=== PATIENT | male | born 1990 | race African-American/Black ===

== ENCOUNTER 2016-11-23 17:11 | Outpatient (CLI) | payer MEDICARE ==
[~2016-11-23] VITALS: Ht 170.2 cm; Wt 56.8 kg
[~2016-11-23 17:11] MED LIST: AMITIZA8 MCG; CHRONULAC30 ML PO; CLONAZEPAM2 MG/TAB PO; LAMICTAL25 MG PO; MYSOLINE250 MG PO; VIMPAT50 MG PO; ZONEGRAN100 MG PO
[2016-11-23] MEDS ORDERED: ZONEGRAN100 MG PO (17:47)
[2016-11-23 17:48] VITALS: BP 128/87; Ht 170.2 cm; Wt 56.8 kg
--- NOTE | 2016-11-23 19:33 | NUR ---
AFTER 2 1000 ML ENEMA AND PASS MANUAL DISSEMPACTION ,PT HAD SUPER LG BM BROWN AND FORMED
[2016-11-23 19:37] LABS: APPEARANCE HAZY (CLEAR); BACTERIA FEW /hpf (NONE SEEN); BILIRUBIN NEGATIVE (NEGATIVE); COLOR YELLOW (YELLOW); GLUCOSE NEGATIVE (NEGATIVE); KETONE NEGATIVE (NEGATIVE); LEUKOCYTE ESTERASE TRACE (NEGATIVE); NITRITE NEGATIVE (NEGATIVE); PROTEIN NEGATIVE (NEGATIVE); RED CELLS - URINE OCC /hpf (0-5); UROBILINOGEN NORMAL (NORMAL); WHITE CELLS - URINE 0-5 /hpf (0-5)
== END 2016-11-23 19:30 | disposition home or self-care (01) ==
LOC: D.OPS 17:11
PROVIDERS: Family Medicine
DX: K59.00 Constipation, unspecified (principal); R41.0 Disorientation, unspecified; Z01.812 Encounter for preprocedural laboratory examination

== ENCOUNTER → 2017-02-07 15:13 | Outpatient (CLI) | payer MEDICARE ==
[~2017-02-07] VITALS: Ht 152.4 cm; Wt 56.8 kg
[2017-02-07 16:03] VITALS: BP 108/64; Ht 152.4 cm; Wt 56.8 kg
== END | disposition home or self-care (01) ==
LOC: D.OPS 15:00
DX: K59.00 Constipation, unspecified (principal)

== ENCOUNTER 2017-02-13 17:18 | Day surgery (SDC) | payer MEDICARE ==
[~2017-02-13] VITALS: Ht 170.2 cm; Wt 59.1 kg
[~2017-02-13 17:18] MED LIST changes: -AMITIZA8 MCG; +AMITIZA8 MCG PO
[2017-02-13 18:11] VITALS: BP 119/73; Ht 170.2 cm; Wt 59.1 kg
--- NOTE | 2017-02-13 18:16 | NUR ---
1800 INITIAL DIGITAL EXAM WITH IMPACTION AT TIP OF DIGITAL EXAM, SOFT BUT UNABLE TO EXTRACT, SS ENEMA INITIATED.
--- NOTE | 2017-02-13 20:04 | NUR ---
2000 SS EMEMAS CONTINUE 3 BAGS WITH DIGITAL IMPACTION RELIEF, BROWN LIQUID RETURN,WITH TRANSVERSE FIRMNESS. SITTING ON BEDSIDE COMMODE AT PRESENT.
--- NOTE | 2017-02-13 20:25 | NUR ---
2024 PT WITH SMALL AMT. BROWN STOOL WITH LOTS OF LIQUID BROWN STOOL RETURN AND WATER RETURN. MOTHER DECIDES SON HAS HAD ENOUGH FOR TONIGHT AND WILL GO HOME AND CALL HIS DRArlene TOMORROW. RELEASED IN OWN WC.
== END 2017-02-13 20:25 | disposition home or self-care (01) ==
LOC: D.OPS 17:18
DX: K56.41 Fecal impaction (principal)

== ENCOUNTER 2017-02-14 14:51 | Inpatient (IN) | payer MEDICARE ==
[~2017-02-14] VITALS: Ht 170.2 cm; Wt 80.7 kg
[2017-02-14 15:20] VITALS: BMI 19.6
[2017-02-14 15:42] LABS: HEMATOCRIT 45.7 % (42.0-54.0); HEMOGLOBIN 15.6 g/dL (13.5-17.5); MCH 31.3 pg (26.0-34.0); MCHC 34.1 g/dL (31.0-37.0); MCV 91.8 fL (80.0-100.0); MEAN PLATELET VOLUME 10.5 fL (7.4-10.4); PLATELET COUNT 237 10x3/uL (130-400); RBC 4.98 10x6/uL (4.20-6.10); RDW 12.5 % (11.5-14.5); WBC 2.9 10x3/uL (4.8-10.8)
[2017-02-14 15:55] LABS: ALBUMIN 4.1 g/dL (3.4-5.0); ALKALINE PHOSPHATASE 150 U/L (46-116); ALT (SGPT) 18 U/L (10-68); BILIRUBIN - TOTAL 0.29 mg/dL (0.2-1.3); CALC OSMOLALITY 277 mosm/kg (275-300); CALCIUM 9.1 mg/dL (8.5-10.1); CHLORIDE - SERUM 105 mmol/L (98-107); CREATININE - SERUM 1.1 mg/dL (0.6-1.3); GLUCOSE 93 mg/dL (74-106); POTASSIUM - SERUM 3.9 mmol/L (3.5-5.1); PROTEIN - SERUM 8.1 g/dL (6.4-8.2); SODIUM 141 mmol/L (136-145); UREA NITROGEN 5 mg/dL (7-18); eGFR NON AFRICAN AMERICAN 87 mL/min (90-120)
--- NOTE | 2017-02-14 15:58 | NUR ---
PT ARRIVED TO UNIT AND HAS BEEN ORIENTED TO ROOM. PT HAS CEREBRAL PALSEY AND MOSTLY NONVERBAL. MOTHER AT BEDSIDE AND SPEAKS FOR HIM AND GAVE ME ALL THE ADMISSION WORK-UP. ATTEMPTED PIV ACCESS BUT WASNT SUCCESSFUL X1 STICK WITH A 20 GUAGE. PT ONLY HAS ONE ARM TO WORK WITH HIS L.ARM R/T R.ARM CONTRACTED, CALLED VASCULAR NURSE TO OBTAIN ACCESS FOR LESS TRAUMA FOR PT THEN WILL START FLUIDS ORDERED.
[2017-02-14 16:05] LABS: THYROID STIMULATING HORMONE 0.51 uIU/mL (0.36-3.74)
[2017-02-14 16:44] LABS: LYMPHOCYTES 25 % (15-50); MONOCYTES 5 % (2-11); NEUTROPHILS 70 % (40-80); PLATELET ESTIMATE NORMAL
--- NOTE | 2017-02-14 17:01 | NUR ---
INITIATED IV FLUIDS INFUSING VIA L.UPPER ARM PIV WITH DRSG CDI AND SWAB CAPS IN USE. PT RESTING QUIETLY IN BED WITH MOTHER AT BEDSIDE. WILL CTM.
--- NOTE | 2017-02-14 19:35 | NUR ---
ALERT/AWAKE SMILING HOLDING HIS MOTHER'S HAND. NO SIGNS/SYMPTOMS OF PAIN OR DISCOMFORT. IV IN L UA WITH NS INFUSING AT 100ML/HR. HIS MOTHER STATED SHE WILL BE LEAVING IN A FEW HOURS. ASSURED HER WE WILL WATCH HIM CLOSELY AND CONTACT HER IF NEEDED.
[2017-02-14 20:15] VITALS: BP 115/66
--- NOTE | 2017-02-14 20:45 | NUR ---
ADMIN SCHED MEDS CRUSHED. HIS MOTHER MIXED WITH APPLEJUICE IN MED CUP AND ENCOURAGED HIM TO SWALLOW.
[2017-02-14 23:32] VITALS: BP 129/92
--- NOTE | 2017-02-15 01:45 | NUR ---
STARTED ENEMA'S. AFTER 1ST BAG, ASSISTED TO BSC AND PASSED BROWNISH LIQUID. SMILING AND HAS NO SIGNS OR SYMPTOMS OF PAIN OR DISCOMFORT. MASSAGE HIS LOWER ABD TO ENCOURAGE PASSAGE OF STOOL. WITH LUBRICATED GLOVED FINGER COULD FEEL SMALL SOFT STOOL OUT OF RANGE TO REMOVE.
--- NOTE | 2017-02-15 03:15 | NUR ---
HAS NOT PASSED 2ND BAG OF ENEMA. HIS MOTHER STATED SHE WOULD LET ME KNOW WHEN HE DOES.
[2017-02-15 04:00] VITALS: BP 126/90
--- NOTE | 2017-02-15 05:30 | NUR ---
PASSED LARGE AMOUT OF BROWNISH PASTY AND LIQUID STOOL. CHANGED GOWN AND BEDDING.
[2017-02-15 06:17] LABS: BASOPHILS 0.5 % (0-2); EOSINOPHILS 2.1 % (0-7); HEMOGLOBIN 14.3 g/dL (13.5-17.5); LYMPHOCYTES 34.8 % (15-50); MCH 30.6 pg (26.0-34.0); MCHC 33.3 g/dL (31.0-37.0); MCV 91.9 fL (80.0-100.0); MEAN PLATELET VOLUME 10.5 fL (7.4-10.4); MONOCYTES 8.5 % (2-11); NEUTROPHILS 54.1 % (40-80); PLATELET COUNT 217 10x3/uL (130-400); RBC 4.68 10x6/uL (4.20-6.10); RDW 12.5 % (11.5-14.5)
[2017-02-15 06:18] LABS: WBC 4.3 10x3/uL (4.8-10.8)
[2017-02-15 06:24] LABS: CALCIUM 8.6 mg/dL (8.5-10.1); CHLORIDE - SERUM 105 mmol/L (98-107); GLUCOSE 83 mg/dL (74-106); SODIUM 139 mmol/L (136-145)
--- NOTE | 2017-02-15 06:30 | NUR ---
ADMIN LACTULOSE, SWALLOWING WITHOUT DIFFICULTY. CHANGED DIAPER CONTAINING MED AMOUNT OF STOOL, PASTY IN CONSISTANCY.
[2017-02-15 06:35] LABS: CALC OSMOLALITY 273 mosm/kg (275-300); CREATININE - SERUM 0.8 mg/dL (0.6-1.3); UREA NITROGEN 3 mg/dL (7-18); eGFR NON AFRICAN AMERICAN > 90 mL/min (90-120)
[2017-02-15 08:36] VITALS: BP 97/66
--- NOTE | 2017-02-15 08:51 | NUR ---
INTRODUCED MYSELF TO PT AND MOTHER PRIMARY RN FOR TODAYS SHIFT. PT SITTING UP IN BED VERY EXCITABLE TO SEE ME AGAIN TODAY. MOTHER STATES HE HAD A GOOD NIGHT AND IS DOING WELL. ELECTROLYTE REPLACEMENT INITIATED AND POTASSIUM REPLACED FOR LEVEL OF 3.0. DILUTED LIQUID WITH GRAPE JUICE ALONG WITH PTS MIRALAX. MOTHER AT BEDSIDE AND GIVES PT HIS MEDS BUT REQUESTED THEM CRUSHED SO I PROVIDED HER WITH THEM. CHANGED OUT PTS TUBING AND IV FLUIDS FOR NEW ORDER OF NS WITH 20MEQ OF KCL INFUSING VIA L.UPPER ARM PIV WITH DRSG CDI AND SWAB CAPS IN USE. PT BEING ASSISTED BY MOTHER WITH BREAKFAST NO CURRENT NEEDS AT THIS TIME. CL IN REACH, BED IN LOWEST, SIDE RAILS X2. WILL CPOC.
--- NOTE | 2017-02-15 10:15 | NUR ---
PT LEAVING FOR XR GASTRO ENEMA, MOTHER AT BEDSIDE. NO NEEDS. WILL CPOC.
--- NOTE | 2017-02-15 11:42 | NUR ---
PT BACK FROM XR ENEMA PROCEDURE. PROVIDED PT WITH FRESH BLANKET. PT RESTING QUIETLY IN BED WITH EYES CLOSED. MOTHER AT BEDSIDE WILL CTM.
[2017-02-15 12:55] VITALS: BP 103/64
[2017-02-15 13:50] VITALS: Ht 170.2 cm; Wt 80.7 kg
[2017-02-15 17:41] VITALS: BP 121/86
--- NOTE | 2017-02-15 18:45 | NUR ---
PT HAD LARGE WATERY BM IN "MIKAELA POOL" PT REC'D COMPLETE BED BATH. PT UNABLE TO VOICE FEELINGS BUT MOTHER AT BEDSIDE STATES SHE CAN TELL HE IS FEELING BETTER. PT WILL STILL MOST LIKELY NEED ANOTHER ONE DONE TOMORROW. PT STILL RECIEVING MULTIPLE SOFTNERS BUT UNABLE TO PRODUCE ANY ON HIS OWN. NO CURRENT NEEDS AT THIS TIME. MOTHER AT BEDSIDE, CL IN REACH. WILL CTM.
[2017-02-15 20:00] VITALS: BP 120/93
--- NOTE | 2017-02-15 20:25 | NUR ---
ALERT, AWAKE SMILING LOOKING AT HIS MOTHER AND HOLDING HER HAND. NO SIGNS OR SYMPTOMS OF PAIN OR DISCOMFORT. ADMIN SCHED MEDS CRUSHED MIXED IN 30 CC APPLEJUICE, SWALLOWING WITHOUT DIFFICULTY.
--- NOTE | 2017-02-15 22:55 | NUR ---
IV INFILTRATED. REMOVED AND PLACED DRSG. WRAPPED ARM IN WARM BLANKET TO HELP ABSORB INFILTRATED IVF.
--- NOTE | 2017-02-15 23:47 | NUR ---
UNSUCCESSFUL AT RESITING IV. WILL ASK ANOTHER NURSE TO TRY OR CALL ICU NURSE.
[2017-02-16] VITALS: BP 116/72
--- NOTE | 2017-02-16 01:56 | NUR ---
IV RESITED IN L HAND 22G. RESTARTED IVF. TOLERATED VERY WELL.
--- NOTE | 2017-02-16 02:50 | NUR ---
CLEANED FOR INCONTINENCE OF STOOL. MOSTLY WATERY AND SMALL AMOUNT OF PASTY CONSISTENCY STICKING TO HIM.
[2017-02-16 05:52] LABS: BASOPHILS 0.7 % (0-2); EOSINOPHILS 1.9 % (0-7); HEMATOCRIT 43.9 % (42.0-54.0); HEMOGLOBIN 14.5 g/dL (13.5-17.5); IMMATURE GRANULOCYTES 0.2 % (0-5); LYMPHOCYTES 35.4 % (15-50); MCH 30.5 pg (26.0-34.0); MCV 92.4 fL (80.0-100.0); MEAN PLATELET VOLUME 10.9 fL (7.4-10.4); MONOCYTES 7.4 % (2-11); NEUTROPHILS 54.4 % (40-80); PLATELET COUNT 238 10x3/uL (130-400); RBC 4.75 10x6/uL (4.20-6.10); RDW 12.7 % (11.5-14.5); WBC 4.2 10x3/uL (4.8-10.8)
[2017-02-16 06:17] LABS: ALBUMIN 3.8 g/dL (3.4-5.0); ALKALINE PHOSPHATASE 135 U/L (46-116); ALT (SGPT) 16 U/L (10-68); CALC OSMOLALITY 275 mosm/kg (275-300); CALCIUM 8.8 mg/dL (8.5-10.1); CARBON DIOXIDE 23.1 mmol/L (21.0-32.0); CHLORIDE - SERUM 108 mmol/L (98-107); CREATININE - SERUM 0.7 mg/dL (0.6-1.3); GLUCOSE 78 mg/dL (74-106); PHOSPHOROUS 3.4 mg/dL (2.5-4.9); POTASSIUM - SERUM 3.4 mmol/L (3.5-5.1); PROTEIN - SERUM 7.4 g/dL (6.4-8.2); SODIUM 141 mmol/L (136-145); eGFR NON AFRICAN AMERICAN > 90 mL/min (90-120)
[2017-02-16 06:18] LABS: UREA NITROGEN 2 mg/dL (7-18)
--- NOTE | 2017-02-16 07:31 | NUR ---
PT IN BED RESTING EVEN AND UNLABORED RESPIRATIONS NOTED FAMILY MEMBER RESTING AT BEDSIDE WILL CONTINUE TO MONITOR
[2017-02-16 08:00] VITALS: BP 104/66
--- NOTE | 2017-02-16 09:59 | NUR ---
AM MEDICATIONS ADMINISTERED HOWEVER DUE TO LENGTH OF TIME IT TAKES TO GET PT TO TAKE MEDS COMPUTER TIMED OUT AND MEDICATION PACKAGING ALREADY THROWN AWAY AND UNABLE TO RESCAN MOTHER AT BEDSIDE DURING ADMINISTRATION OF ALL MEDS GIVEN
--- NOTE | 2017-02-16 10:40 | NUR ---
UPON OBSERVATION OF PT SEVERAL SEIZURES NOTED. IN THE SMALLER SEIZURES THE PT JERKS TO THE LEFT FOLLOWED BY SEVERAL SECONDS OF A BLANK STARE. IN THE LARGER SEIZURES THE PTs ENTIRE BODY CONTRACTS TOWARD THE MIDLINE AND STAYS THERE FOR SEVERAL SECONDS THIS IS THEN FOLLOWED BY LETHARGY. FOLLOWING THE LARGER SEIZURES THE PT USUALLY GOES TO SLEEP. MOTHER AT BEDSIDE SAID THIS IS NORMAL ACTIVITY AND THAT THE SEIZURES ARE CAUSED BY "THE REFLECTION OF LIGHT" INTERVENTIONS PROVIDED- LIGHTS IN ROOM OFF, DARK SUNGLASSES ON, DECREASED STIMULI. WILL CONTINUE TO MONITOR.
[2017-02-16 12:00] VITALS: BP 111/73
[2017-02-16 16:00] VITALS: BP 108/63
[2017-02-16 20:00] VITALS: BP 110/75
--- NOTE | 2017-02-16 20:00 | NUR ---
REC'D IN BED ALERT TO NAME. RESP EVEN AND UNLABORED WITH NO DISTRESS NOTED. NO C/O NOTED OR VOICED AT THIS TIME. ASSESSMENT COMPLETED. MOTHER REMAIN AT BEDSIDE. CHECKED ON OFTEN. C/L IN REACH.
--- NOTE | 2017-02-17 | NUR ---
CONTINUE TO REST WELL AT THIS TIME. MOTHER REMAIN AT BEDSIDE. C/L IN REACH.
--- NOTE | 2017-02-17 02:23 | NUR ---
PT LYING IN BED, EYES CLOSED, RESPIRATIONS EVEN AND UNLABORED. FAMILY/MOM AT BEDSIDE, AWAKE, DENIES ANY NEEDS. CONTINUE TO MONITOR CLOSELY.
[2017-02-17 04:00] VITALS: BP 113/75
--- NOTE | 2017-02-17 07:17 | NUR ---
PT IN BED RESTING EVEN AND UNLABORED RESPIRATONS NOTED WILL CONTINUE TO MONITOR
[2017-02-17 08:38] VITALS: BP 93/67
[2017-02-17 12:36] VITALS: BP 101/70
--- NOTE | 2017-02-17 15:24 | NUR ---
RESTING IN BED. SUNGLASSES ON. PATIENTS MOTHER AT BEDSIDE. RESP EVEN AND UNLABORED. NO DISTRESS. CALL LIGHT WITHIN REACH.
--- NOTE | 2017-02-17 15:24 | NUR ---
PT RESTING WITH MOTHER (ALSO RESTING) AT BEDSIDE EVEN AND UNLABORED RESPIRATIONS NOTED WILL CONTINUE TO MONITOR.
[2017-02-17 16:23] VITALS: BP 99/57
[2017-02-17 20:00] VITALS: BP 126/87
--- NOTE | 2017-02-18 03:13 | NUR ---
CALL LIGHT IN REACH, WILL CONTINUE WITH PLAN OF CARE.
[2017-02-18 04:00] VITALS: BP 108/71
[2017-02-18] MEDS ORDERED: COLACE100 MG PO (06:50)
[2017-02-18] MEDS ORDERED: MINERAL OIL25 ML PO (06:50)
[2017-02-18] MEDS ORDERED: AMITIZA24 MCG PO (06:50)
[2017-02-18] MEDS ORDERED: MIRALAX17 GM PO (06:50)
--- NOTE | 2017-02-18 07:45 | NUR ---
INTRODUCED MYSELF TO PT PRIMARY RN FOR TODAYS SHIFT. PT IS SLEEPING WITH HIS EYES CLOSED. MOTHER AT BEDSIDE AND STATES THEY HOPE TO BE DISCHARGED TODAY PT HAS BEEN HAVING SEVERAL BOWEL MOVEMENTS NOW. PT HAS NS WITH 20MEQ OF KCL INFUSING VIA L.UPPER ARM @75ML/HR. DRSG CDI AND SWAP CAPS IN USE. MOTHER DENIES ANY CURRENT NEEDS AT THIS TIME. CL IN REACH. WILL CPOC.
[2017-02-18 08:00] VITALS: BP 110/71
--- NOTE | 2017-02-18 09:00 | NUR ---
PROVIDED PT WITH HIS MORNING MEDICATIONS CRUSHED IN APPLE JUICE. PT SWALLOWED FOR HIS MOTHER WITHOUT ANY DIFFICULTIES. PT INCONTINENT OF URINE EPISODE. ORACLE PROGRAMMER ANALYST AT BEDSIDE AND PROVIDED COMPLETE BED BATH. COLACE ENEMA HELD AT THIS TIME PER MOTHERS REQUEST UNTIL A LITTLE LATER R/T PT HAVING TO DO SO MUCH JUST NOW. WILL ALLOW PT TO REST AND PROVIDED LATER. PT RESTING IN BED SMILING HOLDING HIS MOTHERS HAND. MOTHER AT BEDSIDE FEEDING HIM. NO FURTHER NEEDS AT THIS TIME. WILL CPOC.
--- NOTE | 2017-02-18 10:37 | NUR ---
Patient Name: ELIEL HURTADO Admission Status: Urgent Accout number: [id number] Admission Date: 02-17-2017 : 1990 Admission Diagnosis: Attending: PRAMOD Current LOS: 1 Anticipated DC Date: 02-18-2017 Planned Disposition: Home Primary Insurance: MEDICARE A & B Discharge Planning Comments: CM ATTEMPTED TO MEET WITH PT FOR INITIAL ASSESSMENT OF DISCHARGE NEEDS. PT'S MOTHER WAS NOT IN ROOM AT APPROXIMATELY 1030 HOURS, BEDSIDE NURSE INFORMED CM THAT PT'S MOTHER LEFT TO MISSY HER PHONE FIXED, PT DOES NOT COMMUNICATE. CM TO ATTEMPT ASSESSMENT OF PT AT A LATER TIME. Pediatric Dietician: Kushal Galicia
--- NOTE | 2017-02-18 10:42 | NUR ---
OFFERED SCDS FOR DVT PROPHYLACTICS BUT MOTHER REFUSED R/T IT MAY TRIGGER IRRITATION AND SEIZURE ACTIVITY.
[2017-02-18 12:00] VITALS: BP 113/69
--- NOTE | 2017-02-18 13:06 | NUR ---
Patient Name: ELIEL HURTADO Admission Status: Urgent Accout number: [id number] Admission Date: 02-17-2017 : 1990 Admission Diagnosis: Attending: PRAMOD Current LOS: 1 Anticipated DC Date: 02-18-2017 Planned Disposition: Home Primary Insurance: MEDICARE A & B Discharge Planning Comments: * Is the patient Alert and Oriented? No 0 * How many steps to enter\exit or inside your home? RAMP 0 * PCP DR. LOPEZ 0 * Pharmacy [facility] 0 * Preadmission Environment Home with Family 0 * ADLs Total Dependent 0 * Equipment Other Shower Chair Wheelchair 0 * Other Equipment NAVARRO NERVE STIMULATOR - FOR SEIZURE CONTROL NO MEDICAL EQUIPMENT PROVIDER PREFERENCE 0 * List name and contact numbers for known caregivers / representatives who currently or will assist patient after discharge: ABRAHAM CLARK, MOTHER,. [phone] 0 * Community resources currently utilized Private Duty Care 0 * Please name any agencies selected above. [employer] [facility] [facility] [employer] - 24 HRS / 7 DAYS ON WEEKDAYS 32 WEEKEND HOURS 0 * Additional services required to return to the preadmission environment? No 0 * Can the patient safely return to the preadmission environment? Yes 0 * Has this patient been hospitalized within the prior 30 days at any hospital? No 0 CM RECEIVED DISCHARGE ORDER, MET WITH PT AND MOTHER IN ROOM TO DISCUSS DISCHARGE PLANNING AND NEEDS. PT IS NON COMMUNICATIVE, PT'S MOTHER PARTICIPATED IN ASSESSMENT. PT'S MOTHER REPORTS LIVING AT HOME TOTALLY DEPENDENT UPON HIS MOTHER AND BROTHER. PT RECEIVES 24 HOUR CAREGIVING THROUGH [facility] DURING WEEKDAYS AND 32 HOURS ON WEEKENDS. PT IS NEVER ALONE AND FAMILY IS WITH PT AT ALL TIMES TO ATTEND TO PT'S CARE AND NEEDS. CM DISCUSSED AVAILABILITY OF HOME HEALTH, REHAB SERVICES AND MEDICAL EQUIPMENT. PT'S MOTHER DENIES DISCHARGE NEEDS, REPORTS SHE WILL PICK BE TRANSPORTING PT HOME AT DISCHARGE TODAY. IMPORTANT MESSAGE FROM MEDICARE PROVIDED AND EXPLAINED. Crematory Operator: Kushal Galicia
--- NOTE | 2017-02-18 13:30 | NUR ---
D/C PTS L.UPPER ARM PIV WITH CATHETER TIP FULLY INTACT. PT BEING DISCHARGED. TEACHING PROVIDED TO MOTHER AND PAPERS GIVEN AND SIGNED. MOTHER DENIES ANY QUESTIONS OR CONCERNS. BELONGINGS COLLECTED AND PT WILL BE TRANSPORTED DOWN. NO FURTHER NEEDS.
== END 2017-02-18 13:34 | disposition home or self-care (01) | DRG 389 ==
LOC: D.M2 14:51 → OBSVTIME 14:51 → D.M2 14:51
PROVIDERS: ADMIT Family Medicine
DX: K56.41 Fecal impaction (principal); K56.7 Ileus, unspecified; G40.909 Epilepsy, unspecified, not intractable, without status epilepticus; Z99.3 Dependence on wheelchair

== ENCOUNTER 2017-03-28 17:49 | Emergency (ER) | payer MEDICARE ==
[2017-02-15 13:50] VITALS: BMI 26.4
[~2017-03-28 17:49] MED LIST changes: +AMITIZA24 MCG PO; +COLACE100 MG PO; +MINERAL OIL25 ML PO; +MIRALAX17 GM PO
== END 2017-03-28 20:00 | disposition home or self-care (01) ==
LOC: D.ER 17:49
DX: S01.01XA Laceration without foreign body of scalp, initial encounter (principal); W19.XXXA Unspecified fall, initial encounter; Y93.89 Activity, other specified; Y92.019 Unspecified place in single-family (private) house as the place of occurrence of the external cause

== ENCOUNTER 2017-05-08 22:40 | Emergency (ER) | payer MEDICARE ==
[2017-02-15 13:50] VITALS: BMI 26.4
== END 2017-05-09 00:24 | disposition home or self-care (01) ==
LOC: D.ER 22:40
DX: S01.511A Laceration without foreign body of lip, initial encounter (principal); W19.XXXA Unspecified fall, initial encounter; Y93.89 Activity, other specified; Y92.029 Unspecified place in mobile home as the place of occurrence of the external cause

== ENCOUNTER 2017-11-09 00:30 | Inpatient (IN) | payer MEDICARE ==
[~2017-11-09] VITALS: Ht 172.7 cm; Wt 56.7 kg
--- NOTE | ~2017-11-09 | HP ---
PATIENT: ELIEL HURTADO MEDICAL RECORD: [id number] ACCOUNT: [id number] LOCATION:[id number] : [birth year] ADMISSION DATE: 11/09/17 HISTORY AND PHYSICAL EXAMINATION HISTORY OF PRESENT ILLNESS: A 27-year-old -Nepalese male presents to the Emergency Room with a temperature of 102.2, chills, fever. Unable to provide any significant answers. Very limited verbalization. Mother is present. Again, he presented to the ER febrile, tachycardic, and septic appearance. PAST MEDICAL HISTORY: Significant for seizure disorder, past brain surgery, history of subdural hemorrhage, traumatic brain injury, chronic fecal impaction, constipation, nonambulatory. MEDICATIONS: Lamictal, Zonegran, Vimpat, primidone, Amitiza, MiraLax, and Linzess. PRIMARY CARE PHYSICIAN: Dr. Tra Paul. ALLERGIES: No known drug allergies. REVIEW OF SYSTEMS: CONSTITUTIONAL: No known change in weight. HEENT: No reported cephalgia. Extensive history. Brain injury and seizures as noted above. No active seizures presently. CARDIOVASCULAR: Denies chest pain. Denies palpitations. PULMONARY: Denies hemoptysis. Denies night sweats. GASTROINTESTINAL: Chronic constipation. No acute changes. GENITOURINARY: Discomfort with urination, limited historian. MUSCULOSKELETAL: Nonambulatory. PHYSICAL EXAMINATION: VITAL SIGNS: On admission to the Emergency Room; temperature 102.2, blood pressure 130/79, heart rate 140, respirations 20, and O2 sat 98% on room air. GENERAL: Alert to person. HEENT: Pupils reactive. HEART: Regular, tachycardic. LUNGS: Clear to auscultation bilaterally. Breathing is nonlabored. ABDOMEN: Soft. Hypoactive bowel sounds. EXTREMITIES: Present times 4. NEUROLOGIC: Extensive deficits as noted above. LABORATORY DATA AND DIAGNOSTIC STUDIES: Rapid flu negative. Rapid Strep negative. Urinalysis; dark yellow, specific gravity 1.015, 1+ protein, small ketones, 1+ blood, 1+ leukocyte esterase, 10-25 wbc's per high-powered field, positive for bacteria. CBC: White count 26.2, hemoglobin 15.8, hematocrit 46.2, platelets 173, neutrophils 23.25 per high-powered field. Chemistry shows sodium of 140, potassium 3.3, chloride 102, bicarbonate 20.7, BUN 22, creatinine 1.4. Chest x-ray, no acute process. KUB large amount of stool consistent with chronic constipation. Blood cultures pending. We will add urine cultures. ASSESSMENT AND PLAN: 1. Sepsis secondary to urinary tract infection. The patient started on IV HISTORY AND PHYSICAL [id number] ELIEL HURTADO, significant improvement in symptoms from the time of admission. IV fluids. 2. Seizure disorder. Resume home medications. 3. Chronic constipation. Bowel regimen. Continue home medications. Supportive care. We will monitor electrolytes. I had a long discussion with the patient's mother, agree with care plan. TRANSINT:[id number] Voice Confirmation ID: [id number] DOCUMENT ID: [id number] VISHAL ENCARNACION DO at 1341 CC: [id number] DICTATION DATE: 11/09/17 1309 PAINT PREPARER: 11/09/17 1328 ADM IN [facility] [address] [place] [address]
[2017-11-09 01:54] LABS: HEMATOCRIT 46.2 % (42.0-54.0); HEMOGLOBIN 15.8 g/dL (13.5-17.5); MCH 31.9 pg (26.0-34.0); MCHC 34.2 g/dL (31.0-37.0); MCV 93.1 fL (80.0-100.0); RBC 4.96 10x6/uL (4.20-6.10); RDW 13.1 % (11.5-14.5); WBC 26.2 10x3/uL (4.8-10.8)
[2017-11-09 01:55] LABS: MEAN PLATELET VOLUME 11.1 fL (7.4-10.4); PLATELET COUNT 173 10x3/uL (130-400)
[2017-11-09 01:58] LABS: AMORPHOUS SEDIMENT >1+ /lpf (NONE SEEN); APPEARANCE HAZY (CLEAR); BACTERIA FEW /hpf (NONE SEEN); BILIRUBIN NEGATIVE (NEGATIVE); COLOR DK YELLOW (YELLOW); EPITHELIAL CELLS RARE /hpf (0-5); GLUCOSE NEGATIVE (NEGATIVE); KETONE SMALL mg/dL (NEGATIVE); NITRITE NEGATIVE (NEGATIVE); PROTEIN 1+ mg/dL (NEGATIVE); RED CELLS - URINE 0-5 /hpf (0-5); SPECIFIC GRAVITY 1.015 (1.005-1.020); UROBILINOGEN NORMAL (NORMAL)
[2017-11-09 02:11] LABS: ANION GAP 20.6 mmol/L (8-16); BILIRUBIN - TOTAL 0.84 mg/dL (0.2-1.3); CALCIUM 8.8 mg/dL (8.5-10.1); CARBON DIOXIDE 20.7 mmol/L (21.0-32.0); CREATININE - SERUM 1.4 mg/dL (0.6-1.3); POTASSIUM - SERUM 3.3 mmol/L (3.5-5.1); PROTEIN - SERUM 8.6 g/dL (6.4-8.2)
[2017-11-09 02:25] LABS: EOSINOPHILS 1 % (0-7); LYMPHOCYTES 8 % (15-50); MONOCYTES 5 % (2-11); NEUTROPHILS 79 % (40-80); PLATELET ESTIMATE NORMAL
[2017-11-09 05:14] VITALS: BP 107/67; BMI 19.0
[2017-11-09] MEDS ORDERED: LINZESS290 MCG PO (05:20)
[2017-11-09 08:00] VITALS: BP 116/72
[2017-11-09 16:16] VITALS: BP 109/71
[2017-11-09 20:00] VITALS: BP 120/60
[2017-11-10] VITALS: BP 93/59
[2017-11-10 07:31] LABS: BASOPHILS 0.1 % (0-2); EOSINOPHILS 0.3 % (0-7); IMMATURE GRANULOCYTES 0.6 % (0-5); LYMPHOCYTES 6.8 % (15-50); MCH 30.6 pg (26.0-34.0); MCV 92.9 fL (80.0-100.0); MEAN PLATELET VOLUME 10.8 fL (7.4-10.4); MONOCYTES 9.9 % (2-11); NEUTROPHILS 82.3 % (40-80); RDW 13.5 % (11.5-14.5)
[2017-11-10 07:33] LABS: HEMATOCRIT 36.7 % (42.0-54.0); HEMOGLOBIN 12.1 g/dL (13.5-17.5); PLATELET COUNT 134 10x3/uL (130-400); RBC 3.95 10x6/uL (4.20-6.10); WBC 17.4 10x3/uL (4.8-10.8)
[2017-11-10 08:06] LABS: CALC OSMOLALITY 283 mosm/kg (275-300); CALCIUM 7.7 mg/dL (8.5-10.1); CARBON DIOXIDE 20.8 mmol/L (21.0-32.0); CHLORIDE - SERUM 111 mmol/L (98-107); CREATININE - SERUM 0.7 mg/dL (0.6-1.3); GLUCOSE 112 mg/dL (74-106); MAGNESIUM - SERUM 2.1 mg/dL (1.8-2.4); PHOSPHOROUS 1.5 mg/dL (2.5-4.9); POTASSIUM - SERUM 3.9 mmol/L (3.5-5.1); SODIUM 143 mmol/L (136-145); UREA NITROGEN 8 mg/dL (7-18); eGFR NON AFRICAN AMERICAN > 90 mL/min (90-120)
[2017-11-10 08:26] VITALS: BP 104/64
[2017-11-10 20:00] VITALS: BP 124/63
[2017-11-11 04:00] VITALS: BP 110/58
[2017-11-11 04:34] LABS: BASOPHILS 0.1 % (0-2); EOSINOPHILS 1.8 % (0-7); HEMATOCRIT 37.6 % (42.0-54.0); HEMOGLOBIN 12.5 g/dL (13.5-17.5); IMMATURE GRANULOCYTES 0.8 % (0-5); LYMPHOCYTES 11.5 % (15-50); MCH 30.6 pg (26.0-34.0); MCHC 33.2 g/dL (31.0-37.0); MCV 92.2 fL (80.0-100.0); MEAN PLATELET VOLUME 10.8 fL (7.4-10.4); MONOCYTES 8.2 % (2-11); NEUTROPHILS 77.6 % (40-80); RBC 4.08 10x6/uL (4.20-6.10); RDW 13.5 % (11.5-14.5)
[2017-11-11 04:37] LABS: PLATELET COUNT 165 10x3/uL (130-400); WBC 10.2 10x3/uL (4.8-10.8)
[2017-11-11 04:47] LABS: ALBUMIN 2.7 g/dL (3.4-5.0); ALKALINE PHOSPHATASE 78 U/L (46-116); ALT (SGPT) 22 U/L (10-68); CALC OSMOLALITY 283 mosm/kg (275-300); CARBON DIOXIDE 22.8 mmol/L (21.0-32.0); CHLORIDE - SERUM 111 mmol/L (98-107); CREATININE - SERUM 0.7 mg/dL (0.6-1.3); GLUCOSE 102 mg/dL (74-106); MAGNESIUM - SERUM 1.9 mg/dL (1.8-2.4); POTASSIUM - SERUM 3.7 mmol/L (3.5-5.1); PROTEIN - SERUM 6.6 g/dL (6.4-8.2); SODIUM 144 mmol/L (136-145); eGFR NON AFRICAN AMERICAN > 90 mL/min (90-120)
[2017-11-11 04:49] LABS: UREA NITROGEN 4 mg/dL (7-18)
[2017-11-11 12:00] VITALS: BP 118/71
[2017-11-11 13:48] VITALS: Ht 172.7 cm; Wt 56.7 kg
[2017-11-11 15:10] VITALS: BP 122/77
[2017-11-11 20:47] VITALS: BP 119/78
[2017-11-11 23:56] VITALS: BP 111/69
[2017-11-12 04:35] VITALS: BP 110/65
[2017-11-12 04:36] LABS: BASOPHILS 0.2 % (0-2); EOSINOPHILS 2.3 % (0-7); HEMATOCRIT 31.7 % (42.0-54.0); HEMOGLOBIN 10.2 g/dL (13.5-17.5); IMMATURE GRANULOCYTES 1.2 % (0-5); LYMPHOCYTES 16.2 % (15-50); MCH 29.9 pg (26.0-34.0); MCHC 32.2 g/dL (31.0-37.0); MEAN PLATELET VOLUME 10.5 fL (7.4-10.4); MONOCYTES 11.8 % (2-11); NEUTROPHILS 68.3 % (40-80); PLATELET COUNT 152 10x3/uL (130-400); RBC 3.41 10x6/uL (4.20-6.10); RDW 13.2 % (11.5-14.5)
[2017-11-12 04:39] LABS: WBC 5.7 10x3/uL (4.8-10.8)
[2017-11-12] MEDS ORDERED: LEVAQUIN750 MG PO (06:25)
[2017-11-12 09:19] VITALS: BP 129/85
== END 2017-11-12 10:40 | disposition home or self-care (01) | DRG 872 ==
LOC: D.ER 00:30 → D.MS 02:37
PROVIDERS: Emergency Medicine; Family Medicine
DX: A41.9 Sepsis, unspecified organism (principal); N39.0 Urinary tract infection, site not specified; G40.909 Epilepsy, unspecified, not intractable, without status epilepticus; K59.09 Other constipation

== ENCOUNTER → 2017-11-29 10:16 | Outpatient (CLI) | payer MEDICARE ==
[2017-11-11 13:48] VITALS: BMI 19.0
[~2017-11-29 10:16] MED LIST changes: +LEVAQUIN750 MG PO; +LINZESS290 MCG PO
== END | disposition home or self-care (01) ==
LOC: D.RAD 10:16
DX: K59.00 Constipation, unspecified (principal)

== ENCOUNTER 2019-06-25 12:15 | Emergency (ER) | payer MEDICARE ==
[~2019-06-25] VITALS: Ht 172.7 cm; Wt 56.8 kg
[2019-06-25 12:50] VITALS: BP 123/97; Ht 172.7 cm; Wt 56.8 kg
[2019-06-25 16:20] LABS: APPEARANCE CLOUDY (CLEAR); BILIRUBIN NEGATIVE (NEGATIVE); COLOR YELLOW (YELLOW); GLUCOSE NEGATIVE (NEGATIVE); KETONE NEGATIVE (NEGATIVE); NITRITE NEGATIVE (NEGATIVE); PROTEIN 2+ mg/dL (NEGATIVE); UROBILINOGEN NORMAL (NORMAL)
[2019-06-25 16:26] LABS: RED CELLS - URINE 0-5 /hpf (0-5); WHITE CELLS - URINE RARE /hpf (NEGATIVE)
[2019-06-25 16:27] LABS: AMORPHOUS SEDIMENT >1+ /lpf (NONE SEEN); BACTERIA NONE SEEN /hpf (NEGATIVE); EPITHELIAL CELLS NSEEN /hpf (0-5)
== END 2019-06-25 18:40 | disposition home or self-care (01) ==
LOC: D.ER 12:15
PROVIDERS: Emergency Medicine
DX: R39.198 Other difficulties with micturition (principal); E86.0 Dehydration